=== PATIENT | male | born 1955 | race Caucasian/White ===

== ENCOUNTER 2018-08-28 16:16 | Emergency (ER) | payer OTHER ==
[~2018-08-28] VITALS: Ht 177.8 cm; Wt 113.6 kg
[2018-08-28 16:18] VITALS: Ht 177.8 cm; Wt 113.6 kg
[2018-08-28 16:48] LABS: BASOPHILS 0.5 % (0-2); HEMATOCRIT 37.1 % (42.0-54.0); HEMOGLOBIN 12.8 g/dL (13.5-17.5); IMMATURE GRANULOCYTES 0.3 % (0-5); MCH 29.1 pg (26.0-34.0); MCHC 34.5 g/dL (31.0-37.0); MCV 84.3 fL (80.0-100.0); MEAN PLATELET VOLUME 8.9 fL (7.4-10.4); MONOCYTES 7.2 % (2-11); PLATELET COUNT 249 10x3/uL (130-400); WBC 7.3 10x3/uL (4.8-10.8)
[2018-08-28 17:07] LABS: ALBUMIN 3.7 g/dL (3.4-5.0); ALKALINE PHOSPHATASE 97 U/L (46-116); ALT (SGPT) 41 U/L (10-68); BILIRUBIN - TOTAL 0.73 mg/dL (0.2-1.3); CALC OSMOLALITY 259 mosm/kg (275-300); CALCIUM 8.8 mg/dL (8.5-10.1); CARBON DIOXIDE 24.3 mmol/L (21.0-32.0); CHLORIDE - SERUM 94 mmol/L (98-107); CREATININE - SERUM 1.1 mg/dL (0.6-1.3); GLUCOSE 188 mg/dL (74-106); POTASSIUM - SERUM 4.8 mmol/L (3.5-5.1); PROTEIN - SERUM 7.7 g/dL (6.4-8.2); SODIUM 127 mmol/L (136-145); UREA NITROGEN 12 mg/dL (7-18); eGFR NON AFRICAN AMERICAN 72 mL/min (90-120)
[2018-08-28 17:31] LABS: CREATINE KINASE 55 UL (21-232); MAGNESIUM - SERUM 1.7 mg/dL (1.8-2.4); PROTIME 12.3 SECONDS (11.6-15.0); TROPONIN-I < 0.017 ng/mL (0.000-0.060)
[2018-08-28 17:32] LABS: INR 0.93 (0.85-1.17)
[2018-08-28 17:33] LABS: APTT 25.6 SECONDS (22.8-39.4)
[2018-08-28 21:07] VITALS: BP 121/71
== END 2018-08-28 21:08 | disposition other institution (70) ==
LOC: D.ER 16:16
PROVIDERS: Family Medicine
DX: R07.9 Chest pain, unspecified (principal); I50.9 Heart failure, unspecified; R06.09 Other forms of dyspnea